=== PATIENT | male | born 1980 | race African-American/Black ===

== ENCOUNTER → 2017-12-18 | Outpatient (CLI) | payer OTHER ==
--- NOTE | ~2017-12-18 | SLE ---
[facility] [place] [address] POLYSOMNOGRAPHY STUDY Name: GUICHO IRVIN Room #: [facility].#: [id number] Admission: 12/18/17 Attend Phys: Ge Ron MD Discharge: Date of : 84 Report #: [id number] THIS REPORT FOR: //name// CC: Ge Ron FAM unknown Bridget Lawson Physician staff DATE OF SERVICE: 12/18/2017 ATTENDING PHYSICIAN: Dr. Bridget Lawson. The patient is a 37-year-old who weighs 290 pounds and is 63 inches tall with a BMI of 51.4. The patient has severe subjective hypersomnia with an [place] score of 23 out of a maximum of 24. The patient underwent a split night sleep study at [facility]. During the night study, the patient spent 518 minutes in bed and slept for 446 minutes with a sleep efficiency of 86%. Sleep latency was 2.1 minutes with a prolonged REM latency of 274.1 minutes. Overall sleep architecture showed normal stage 1 sleep, increased stage 2 sleep, which was 78% of the total sleep time. Reduced N3 sleep, which was 0.9% of the total sleep time and slightly reduced REM sleep, which was 16% of the total sleep time. During the initial diagnostic portion of the study, the patient spent 172 minutes in bed and slept for 159 minutes. During that time, the patient had 293 apneas, 286 obstructive and 6 mixed apneas and 1 hypopnea. The patient's apnea-hypopnea index during the diagnostic portion was 111 per hour. The patient did not have REM sleep during the diagnostic portion. The patient's supine index was 111 per hour as well. EKG monitoring revealed an average heart rate of 84 beats per minute with a maximum of 110 beats per minute. No sustained arrhythmias were observed. PLMS were seen at an index of only 1.9 per hour and none caused EEG arousals. Nocturnal oximetry study revealed an average oxygen saturation of 83% with a lowest of 42%. 67 minutes were spent at oxygen saturation between 80% and 89% and another 29 minutes between 70% and 79% saturation. The patient met the criteria for CPAP initiation; however, the patient was intolerant to CPAP, as a result BiPAP was initiated at a pressure of 10/6 and titrated up to a final BiPAP pressure of 24/18. At that pressure the patient slept for 55 minutes. The patient had long lateral REM sleep. The patient's AHI was reduced to only 5.4 per hour and oxygen saturation remained above 90%. [address] [address] POLYSOMNOGRAPHY STUDY Name: GUICHO IRVIN Room #: REG [facility]#: [id number] Admission: 12/18/17 Attend Phys: Ge Ron MD Discharge: Date of : 84 Report #: [id number] IMPRESSION: 1. Severe sleep apnea-hypopnea syndrome at an apnea-hypopnea index of 111 per hour. 2. Severe nocturnal hypoxia secondary to obstructive sleep apnea, but resolved with CPAP. 3. No clinically significant periodic limb movements in sleep. RECOMMENDATIONS: 1. BiPAP at a pressure of 24/18 completely eliminated the patient's sleep apnea and should be used on a nightly basis. 2. Follow up in 4-6 weeks to assess compliance with BiPAP and to document clinical improvement. 3. Weight loss is strongly advised. 4. Avoid PAN SHAKER depressants. 5. Cautioned regarding driving until symptoms of sleep apnea have resolved with the use of BiPAP. <ELECTRONICALLY SIGNED> By: Ge Ron MD 12/19/17 [id number] Ge Ron MD /nt
== END ==
LOC: SLEEPLAB 12:05
DX: G47.33 Obstructive sleep apnea (adult) (pediatric) (principal); R09.02 Hypoxemia; R06.83 Snoring; R53.83 Other fatigue

== ENCOUNTER → 2020-10-15 | Outpatient (CLI) | payer OTHER ==
[~2020-10-15] MED LIST: AMOXICILLIN875 MG PO; FLONASE 0.05%50 MCG NARES; GLIPIZIDE 10 MG10 MG PO; LASIX 20 MG TAB20 MG PO; PERCOCET 5-3251 EACH PO; RENAL VITAMIN0.8 MG PO; TOBRADEX EYE O3.5 GM OPHTHALMIC; VENTOLIN HFA 1818 GM INH; VITAMIN C500 MG PO; [UNRECOGNIZED DRUG - REMARK]
== END ==
LOC: RAD 14:27
PROVIDERS: ATTEND Pediatrics
DX: G47.33 Obstructive sleep apnea (adult) (pediatric) (principal); E11.22 Type 2 diabetes mellitus with diabetic chronic kidney disease; N18.6 End stage renal disease; E66.01 Morbid (severe) obesity due to excess calories; R06.00 Dyspnea, unspecified; Z68.42 Body mass index [BMI] 45.0-49.9, adult

== ENCOUNTER 2020-11-25 18:02 | Emergency (ER) | payer OTHER ==
[~2020-11-25] VITALS: Ht 165.1 cm; Wt 108.9 kg
[2020-11-25 18:07] VITALS: BP 113/57
[2020-11-25] MEDS ORDERED: ZANAFLEX4 MG PO (20:01)
== END 2020-11-25 20:16 | disposition home or self-care (01) ==
LOC: ER 18:02
DX: S13.4XXA Sprain of ligaments of cervical spine, initial encounter (principal); S09.90XA Unspecified injury of head, initial encounter; E11.22 Type 2 diabetes mellitus with diabetic chronic kidney disease; I12.0 Hypertensive chronic kidney disease with stage 5 chronic kidney disease or end stage renal disease; N18.6 End stage renal disease; Z79.899 Other long term (current) drug therapy; Z91.02 Food additives allergy status; V89.2XXA Person injured in unspecified motor-vehicle accident, traffic, initial encounter; Y93.89 Activity, other specified; Y92.89 Other specified places as the place of occurrence of the external cause; Y99.8 Other external cause status

== ENCOUNTER → 2021-02-18 | Outpatient (CLI) | payer OTHER ==
[~2021-02-18] MED LIST changes: +ZANAFLEX4 MG PO
--- NOTE | 2021-02-22 10:40 | SLE ---
[facility] [place] [address] POLYSOMNOGRAPHY STUDY Name: GUICHO IRVIN Room #: [facility]#: [id number] Admission: 02/18/21 Attend Phys: Santos Coronado MD Discharge: Date of : 84 Report #: [id number] THIS REPORT FOR: cc: CUAUHTEMOC SALVADOR RN DECISION UNIT RN CUAUHTEMOC SALVADOR RN DECISION UNIT RN Ge Ron MD ~ cc: Santos Coronado MD DATE OF SERVICE: 02/18/2021 SLEEP STUDY ATTENDING PHYSICIAN: Santos Coronado M.D. The patient is 40 years old who weighs 230 pounds with a BMI of 36. The patient's [place] score was 0. The patient has a history of sleep apnea. The patient has been on BiPAP at a pressure of 24/18. The patient has lost over 100 pounds. Another titration study was requested by the patient's primary side guider. During the night of the study, the patient spent 428 minutes in bed and slept for 413 minutes with a sleep efficiency of 96%. Sleep latency was 1.6 minutes with a REM latency of 51.5 minutes. Sleep architecture showed normal stage 1 and stage II sleep, increased slow wave and increased REM sleep, which was 31% of total sleep time. EKG monitoring revealed an average heart rate of 70 beats per minute. No sustained arrhythmias observed. No significant PLM seen. PLM index was only 4.4 per hour. The patient was started on BiPAP at a pressure of 8/4 and titrated up to 20/14. It was noticeable that the patient had increasing central apneas starting at a pressure of 18/12. This was resulting in the patient's higher AHI's. Best results were seen at the BiPAP pressure of 17/12. At that pressure, the patient had 36 minutes of sleep, including 12 minutes of supine REM sleep. The patient's AHI was reduced to 5 per hour and oxygen saturation remained above 88%. This should be used as a final BiPAP pressure. IMPRESSION: 1. Sleep apnea diagnosed by previous sleep study. 2. No clinically significant periodic limb movements. RECOMMENDATIONS: 1. BiPAP at a pressure of 17/12, should be used on a nightly basis. The patient's significant weight loss of 100 pounds has contributed to reduction in [facility] [address] [place] [address] POLYSOMNOGRAPHY STUDY Name: GUICHO IRVIN Room #: [facility]#: [id number] Admission: 02/18/21 Attend Phys: Santos Coronado MD Discharge: Date of : 84 Report #: [id number] BiPAP pressure requirements from a previous of . 2. Further weight loss is advised. 3. Avoid CABIN MAN depressants. 4. Cautioned regarding driving until symptoms of sleep apnea resolve with above recommendations. <ELECTRONICALLY SIGNED> By: Ge Ron MD 02/22/21 [id number] Ge Ron MD /lizy
== END ==
LOC: SLEEPLAB
PROVIDERS: ATTEND Pediatrics
DX: G47.33 Obstructive sleep apnea (adult) (pediatric) (principal); N18.6 End stage renal disease; E66.01 Morbid (severe) obesity due to excess calories; Z68.42 Body mass index [BMI] 45.0-49.9, adult; E10.21 Type 1 diabetes mellitus with diabetic nephropathy; Z20.822 Contact with and (suspected) exposure to COVID-19